=== PATIENT | male | born 1955 | race American Indian/Alaskan Native ===

== ENCOUNTER 2022-05-09 11:52 | Emergency (ER) | payer MEDICARE ==
--- NOTE | 2022-05-09 12:34 | Emergency Department Report ---
ED GI Bleed HPI - General Chief complaint: GI Bleed Stated complaint: RECTAL BLEEDING Time Seen by Provider: 05/09/22 12:16 Source: patient, EMS Mode of arrival: Stretcher Limitations: No Limitations - History of Present Illness Initial comments: Patient is a 66-year-old male presenting to ED with complaint of lower GI bleeding beginning yesterday. States he was at home when he noticed dark clotted blood coming from his rectum. States the bleeding has lessened since that time and is currently bright red/pink. 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 He is also on dialysis and reports swelling in his distal right upper arm where his fistula is located. He denies fever or chills. No prior history of GI bleed. He does however have history of prostate cancer. - Related Data Allergies Allergy/AdvReac Type Severity Reaction Status Date / Time No Known Allergies Allergy Verified 05/09/22 11:55 ED Review of Systems ROS: Stated complaint: RECTAL BLEEDING Other details as noted in HPI Constitutional: denies: chills, fever Respiratory: denies: cough, shortness of breath, wheezing Cardiovascular: denies: chest pain, palpitations Gastrointestinal: hematochezia Musculoskeletal: denies: back pain, joint swelling, arthralgia Skin: lesions (Swelling to medial aspect of distal right upper arm). denies: rash Neurological: denies: headache, weakness Psychiatric: denies: anxiety, depression ED Physical Exam - General Limitations: No Limitations General appearance: alert, in no apparent distress - Head Head exam: Present: atraumatic, normocephalic - Respiratory Respiratory exam: Present: normal lung sounds bilaterally. Absent: respiratory distress - Cardiovascular Cardiovascular Exam: Present: regular rate, normal rhythm, normal heart sounds - GI/Abdominal GI/Abdominal exam: Present: soft, other. Absent: distended, tenderness - Rectal Rectal exam: Present: normal rectal tone, other (Dark clotted blood around anus) - Extremities Exam Extremities exam: Present: other (Fistula to right arm with palpable thrill. There is swelling to the distal portion of the medial aspect of the right upper arm with associated warmth and tenderness.) - Neurological Exam Neurological exam: Present: alert, oriented X3, CN II-XII intact - Psychiatric Psychiatric exam: Present: normal affect, normal mood ED Course Vital Signs 05/09/22 05/09/22 05/09/22 11:53 12:15 12:29 Pulse Rate 79 Respiratory 17 Rate Blood Pressure Blood Pressure 174/87 [Left] O2 Sat by Pulse 100 97 98 Oximetry 05/09/22 05/09/22 05/09/22 12:31 12:45 13:01 Pulse Rate 77 72 74 Respiratory 15 13 15 Rate Blood Pressure 153/80 153/80 155/87 Blood Pressure [Left] O2 Sat by Pulse 92 95 94 Oximetry 05/09/22 05/09/22 05/09/22 13:15 13:31 13:45 Pulse Rate 73 71 70 Respiratory 15 15 15 Rate Blood Pressure 155/87 155/84 155/84 Blood Pressure [Left] O2 Sat by Pulse 95 96 97 Oximetry 05/09/22 05/09/22 05/09/22 14:01 14:15 14:31 Pulse Rate 75 71 75 Respiratory 19 14 16 Rate Blood Pressure 139/79 139/79 154/91 Blood Pressure [Left] O2 Sat by Pulse 96 97 97 Oximetry 05/09/22 05/09/22 05/09/22 14:45 15:01 15:15 Pulse Rate 74 75 74 Respiratory 17 16 15 Rate Blood Pressure 154/91 145/82 141/78 Blood Pressure [Left] O2 Sat by Pulse 97 97 97 Oximetry 05/09/22 05/09/22 05/09/22 16:33 16:45 17:01 Pulse Rate Respiratory Rate Blood Pressure 148/81 148/81 148/86 Blood Pressure [Left] O2 Sat by Pulse 98 100 97 Oximetry 05/09/22 05/09/22 05/09/22 17:15 17:31 17:45 Pulse Rate Respiratory Rate Blood Pressure 141/78 166/89 155/94 Blood Pressure [Left] O2 Sat by Pulse 99 97 97 Oximetry ED Medical Decision Making - Lab Data Result diagrams: 05/09/22 13:55 05/09/22 13:55 - Medical Decision Making H&H stable. CT abdomen and pelvis shows no acute findings. Soft tissue edema noted on CT right arm in the area of patient's concern. There is no warmth or redness to the area. White blood cell count is normal. This does not appear to be infectious in nature. I discussed the imaging results and lab results with the patient. He is stable for discharge home with PCP follow-up. Patient given strict return precautions in the event of continued bleeding. Critical care attestation.: If time is entered above; I have spent that time in minutes in the direct care of this critically ill patient, excluding procedure time. ED Disposition Clinical Impression: Rectal bleeding Disposition: 01 HOME / SELF CARE / HOMELESS Is pt being admited?: No Does the pt Need Aspirin: No Condition: Stable Instructions: Rectal Bleeding, Lower Gastrointestinal Bleeding Forms: Accompanied Note Time of Disposition: 19:29
[2022-05-09 15:01] LABS: Basophils # (Auto) 0.2 K/mm3 (0.0-0.1); Basophils % (Auto) 2.5 % (0.0-1.8); Eosinophils # (Auto) 0.2 K/mm3 (0.0-0.4); Eosinophils % (Auto) 3.1 % (0.0-4.3); Hematocrit 37.5 % (35.5-45.6); Hemoglobin 12.5 gm/dl (11.8-15.2); Lymphocytes # (Auto) 0.9 K/mm3 (1.2-5.4); Lymphocytes % (Auto) 13.9 % (13.4-35.0); Mean Corpuscular HGB Conc 33 % (32-34); Mean Corpuscular Volume 97 fl (84-94); Monocytes # (Auto) 0.6 K/mm3 (0.0-0.8); Monocytes % (Auto) 9.9 % (0.0-7.3); Platelet Count 116 K/mm3 (140-440); Red Blood Count 3.88 M/mm3 (3.65-5.03); Red Cell Distribution Width 14.4 % (13.2-15.2)
[2022-05-09 15:11] LABS: INR 0.97 (0.87-1.13)
[2022-05-09 15:12] LABS: Partial Thromboplastin Time 30.8 Sec. (24.2-36.6)
[2022-05-09 15:25] LABS: Albumin 3.8 g/dL (3.9-5); Calcium 9.1 mg/dL (8.4-10.2)
--- NOTE | 2022-05-09 16:31 | Cat Scan Report ---
CT RIGHT UPPER EXTREMITY WITH CONTRAST INDICATION / CLINICAL INFORMATION: Swelling and pain to distal portion of upper arm. TECHNIQUE: Axial CT images were obtained through the right upper arm after 75 mL Omnipaque 350 IV con trast. Coronal and sagittal 2-D reconstruction images were produced. All CT scans at this location ar e performed using CT dose reduction for ALARA by means of automated exposure control. COMPARISON: None available. 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 This bilobed aneurysm is best seen on coronal series 2 on image 36. Aneurysm measures 9 cm in length and about 4.5 x 3.8 cm in transverse d imensions. There is moderate calcification in the wall of the aneurysmal dilatation. There is mild atherosclerotic calcification of the right brachial artery. There is moderate subcutaneous soft tissue edema of the distal upper arm extending to the elbow and p roximal forearm. There is an enlarged epitrochlear lymph node which is likely reactive. IMPRESSION: 1. 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 2. Moderate subcutaneous soft tissue edema of the distal upper arm extending to the elbow and proxima l forearm which could represent cellulitis or venous congestion. Reactive epitrochlear lymph node. Signer Name: Kate Larsen MD Signed: 05/09/2022 4:27 PM Workstation Name: [id number]
--- NOTE | 2022-05-09 16:41 | Cat Scan Report ---
CTA ABDOMEN AND PELVIS WITHOUT AND WITH IV CONTRAST INDICATION / CLINICAL INFORMATION: GI Bleed. TECHNIQUE: Axial CT images were obtained through the abdomen and pelvis after injection of 75 cc of Omnipaque 35 0 IV contrast. 3 plane MIP / 3D reconstructions were produced. All CT scans at this location are perf ormed using CT dose reduction for ALARA by means of automated exposure control. COMPARISON: None available. FINDINGS: VASCULAR FINDINGS: Aorta: Moderate atherosclerotic calcification without evidence of aneurysm, significant stenosis, or dissection. Renal arteries: No significant abnormality. Celiac artery: No significant abnormality. Superior Mesenteric Artery: No significant abnormality. Inferior mesenteric artery: No significant abnormality. Right Iliac Arteries: Mild atherosclerotic calcification. 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 No significant stenosis. Left Iliac Arteries: Mild atherosclerotic calcification. Mild aneurysmal dilatation of the left commo n iliac artery, measuring 1.6 cm. No significant stenosis. NONVASCULAR FINDINGS: There is cardiac enlargement without pericardial effusion. Lung bases are clear. Liver is enlarged, measuring 23 cm. Innumerable bilobar hepatic cysts are present, to include 3.9 cm peripherally calcified cyst in the right hepatic lobe. Gallbladder is unremarkable. The common bile d uct is nondilated. The pancreatic duct is mildly dilated, measuring 7 mm. No discrete pancreatic cyst or mass identified. No acute inflammation of the pancreas. Spleen is enlarged, measuring 14.5 cm. No focal splenic lesion. Adrenals are unremarkable. Innumerable cysts and probable hyperdense cysts are present throughout both kidneys. Evaluation for s olid renal mass is limited due to single provided arterial phase. No hydronephrosis. Bladder is decom pressed. Brachytherapy seeds in the region of the prostate. Stomach and small bowel are normal in caliber. Mild colonic stool burden without colonic wall thicken ing or pericolonic inflammatory stranding. No evidence of active intraluminal GI bleed. The appendix is normal in caliber. No free air, free fluid, or focal fluid collection. SKELETAL STRUCTURES: No aggressive osseous lesions. Advanced multilevel lumbar spondylosis. No acute fracture. Remote appearing healing/healed fracture of the left transverse process of L4. IMPRESSION: 1. No acute findings of the abdomen or pelvis. No evidence of localized bowel inflammation or active intraluminal GI bleed. 2. Mildly dilated pancreatic duct, of uncertain etiology. No discrete pancreatic cyst or mass is iden tified. Consider nonemergent evaluation with MRI/MRCP. 3. 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 4. Other chronic, incidental findings as above. Signer Name: Too Lin MD Signed: 05/09/2022 4:37 PM Workstation Name: [id number]
[2022-05-09 20:08] VITALS: BP 140/62
== END 2022-05-09 20:04 | disposition home or self-care (01) ==
LOC: ED 11:52
DX: K62.5 Hemorrhage of anus and rectum (principal)
CPT/HCPCS: 36415; 73201; 74174; 80053; 82270; 85025; 85610; 85730; 99284; Q9967